=== PATIENT | male | born 1950 | race Caucasian/White ===

== ENCOUNTER 2017-11-30 01:21 | Emergency (ER) | payer OTHER ==
[2017-11-30 01:27] VITALS: BMI 21.2
--- NOTE | 2017-11-30 01:56 | PDOC ---
History of Present Illness - General Chief Complaint: Injury Stated Complaint: PAIN Time Seen by Provider: 11/30/17 01:36 History Source: Patient Exam Limitations: No Limitations - History of Present Illness Initial Comments: 11/30/17 01:48 Patient is a 67M with history of COPD and HTN here today complaining of pain in his right shoulder and right ribs that started after he fell this afternoon. He states that he was standing on the edge of a dumpster stacking boxes when he put his arm out against the adjacent building when he slipped and fell to the ground, landing mostly on his shoulder. He denies LOC, headache, neck pain. He denies shortness of breath. He endorses pain along his right ribs that increases with breathing. Patient was alert and ambulatory after falling. Patient states that he's short of breath, but at baseline. On home o2. Past History - Past Medical History Allergies/Adverse Reactions: Allergies Allergy/AdvReac Type Severity Reaction Status Date / Time No Known Allergies Allergy Verified 11/30/17 02:06 Home Medications: Ambulatory Orders Unobtainable 11/30/17 COPD: Yes HTN: Yes (no meds in some time "I ran out") - Suicide/Smoking/Psychosocial Hx Smoking History: Current every day smoker Have you smoked in the past 12 months: Yes Information on smoking cessation initiated: No Review of Systems - Review of Systems Comments:: 11/30/17 01:51 GENERAL/CONSTITUTIONAL: No fever or chills. No weakness. HEAD, EYES, EARS, NOSE AND THROAT: No change in vision. No sore throat. CARDIOVASCULAR: No chest pain +shortness of breath RESPIRATORY: No cough, wheezing, or hemoptysis. GASTROINTESTINAL: No nausea, vomiting, diarrhea or constipation. GENITOURINARY: No dysuria, frequency, or change in urination. MUSCULOSKELETAL: +right shoulder pain. No neck or back pain. SKIN: No rash NEUROLOGIC: No headache, vertigo, loss of consciousness, or change in strength/ sensation. ENDOCRINE: No increased thirst. No abnormal weight change HEMATOLOGIC/LYMPHATIC: No anemia, easy bleeding, or history of blood clots. ALLERGIC/IMMUNOLOGIC: No hives or skin allergy. *Physical Exam - Vital Signs Last Vital Signs Temp Pulse Resp BP Pulse Ox 92 H 26 H 179/104 88 L 11/30/17 01:26 11/30/17 01:26 11/30/17 01:26 11/30/17 01:26 - Physical Exam Comments: 11/30/17 01:52 GENERAL: Awake, alert, and fully oriented, in no acute distress. Sitting upright in bed. R ARM: Good offset machine operator strength, nontender snuffbox, no pain with axial thumb loading. No forearm tenderness. No tenderness in distal humerus. No collar bone tenderness. Tender along humeral head. Humeral head appears inferiorly displaced. Pain with ROM CHEST: No bruising, tender along lateral ribs HEAD: No signs of trauma, normocephalic, atraumatic EYES: PERRLA, EOMI, sclera anicteric, conjunctiva clear ENT: Auricles normal inspection, hearing grossly normal, nares patent, oropharynx clear without exudates. Moist mucosa NECK: Normal ROM, supple, no lymphadenopathy, JVD, or masses, no midline tenderness LUNGS: No distress, speaks full sentences, clear to auscultation bilaterally HEART: Regular rate and rhythm, normal S1 and S2, no murmurs, rubs or gallops, peripheral pulses normal and equal bilaterally. ABDOMEN: Soft, nontender, normoactive bowel sounds. No guarding, no rebound. No masses. No bruising BACK: No bruising, no midline tenderness. EXTREMITIES: Normal inspection, Normal range of motion, no edema. No clubbing or cyanosis. NEUROLOGICAL: Cranial nerves II through XII grossly intact. Normal speech, normal gait, no focal sensorimotor deficits SKIN: Warm, Dry, normal turgor, no rashes or lesions noted. Procedures - Chest Tube Right Mid Axillary Line 3rd ICS Indication: Pneumothorax (pigtail placed) Anesthesia: 1% Lidocaine Volume(ml): 5 Sterile Draping: Yes Sterile Technique: Yes Hazel of Air [place]: Yes Vaseline Gauze Dressing: Yes Suction: Yes Tube Sutured to Skin: Yes Complications: No Post Procedure CXR: Yes (Reinflated lung) ED Treatment Course - LABORATORY CBC & Chemistry Diagram: 11/30/17 02:22 11/30/17 02:22 - RADIOLOGY Radiology Studies Ordered: Category Date Time Status CHEST PA & LAT [RAD] Stat Radiology 11/30/17 01:45 Ordered RIBS RIGHT SIDE [RAD] Stat Radiology 11/30/17 01:45 Ordered SHOULDER-RIGHT [RAD] Stat Radiology 11/30/17 01:45 Ordered Medical Decision Making - Medical Decision Making 11/30/17 01:56 Patient is 67M with history of COPD and HTN here today complaining of shoulder and right rib pain after a fall. Patient has home O2 requirement, states that his shortness of breath is at baseline. Mechanical fall, not syncope. No blood thinners. Shoulder appears dislocated. Tender ribs. Will treat with percocet, x- ray shoulder and ribs, head ct. Neck cleared with NEXUS. 11/30/17 02:33 Shoulder x-ray shows no fracture or dislocation. Does show right sided pneumothorax. CBC, CMP, Trop, PT/INR drawn. Patient started on non-rebreather. Will sedate and place pigtail. 11/30/17 03:39 Pigtail placed without complication. Repeat CXR shows appropriate placement with re-inflation of lung. Labs pending. 11/30/17 04:[address] negative. 11/30/17 04:56 Atelectasis/PNA in RLL on CT. Fractures in anterior 3,4,5, possibly 6th ribs and 5,6,7 posterior ribs. Covered with azithromycin and ceftriaxone. 11/30/17 05:16 Transferred to [facility] for flail chest. *DC/Admit/Observation/Transfer Diagnosis at time of Disposition: Flail chest - Discharge Dispostion Disposition: TRANSFER ACUTE CARE/OTHER HOSP Condition at time of disposition: Stable Decision to Admit order: No - Referrals - Patient Instructions - Post Discharge Activity - Transfer to Acute Care Facility Receiving Facility: [facility]. Accepting Physician:: Tyrel
--- NOTE | 2017-11-30 02:04 | PDOC ---
Attending Attestation - HPI HPI: 11/30/17 03:52 Patient is a 67 year old male with a significant past medical history of COPD, HTN, who presents to the ED with complaints of right shoulder pain, s/p fall that occured this afternoon. Patient reports standing on the side of a dumpster helping a friend stack boxes when he attempted to put him on a nearby wall when he slipped causing him to fall on the floor, hitting right sided on the floor causing immediate pain. He reports experiencing associated pain along his right sided ribs that he states is increased with deep inspiration, prompting him to come into the ED for further evaluation. Denies chest pain, Sob. Denies nausea,vomiting. Denies contact with sick individuals, out of state travelling. Denies head trauma. Denies loss of consciousness. Denies dysuria, hematuria. Denies any other symptoms. Allergies: None Social history: No smoking. No alcohol. No illicit drugs. Surgical history: None PMD: None <Gregg Peterson - Last Filed: 11/30/17 03:51> - Resident Resident Name: William Rowan - ED Attending Attestation I have performed the following: I have examined & evaluated the patient, The case was reviewed & discussed with the resident, I agree w/resident's findings & plan, Exceptions are as noted - Physicial Exam PE: GENERAL: Awake, alert, and fully oriented. +Tachypnea. Cachectic. HEAD: No signs of trauma EYES: PERRLA, EOMI, sclera anicteric, conjunctiva clear ENT: Auricles normal inspection, hearing grossly normal, nares patent, oropharynx clear without exudates. Moist mucosa NECK: Normal ROM, supple, no lymphadenopathy, JVD, or masses LUNGS: Distant breath sounds B/L, more decreased on R side. +Scattered wheezes on L. HEART: Regular rate and rhythm, normal S1 and S2, no murmurs, rubs or gallops ABDOMEN: Soft, nontender, normoactive bowel sounds. No guarding, no rebound. No masses EXTREMITIES: Normal range of motion, no edema. No clubbing or cyanosis. No cords, erythema, or tenderness NEUROLOGICAL: Cranial nerves II through XII grossly intact. Normal speech. Motor and sensation intact. SKIN: Warm, Dry, normal turgor, no rashes or lesions noted. - Medical Decision Making 11/30/17 02:35 Pt found to have ptx on R side. Will place pigtail and admit. 11/30/17 04:59 Pt with multiple rib fx, including 2 fractures to the 5th and 6th ribs. Concern that this is a flail segment. Will discuss with [facility] regarding transfer. <Marcela Rodriguez - Last Filed: 11/30/17 06:00>
[2017-11-30] MEDS: ALBUTEROL SO4 2.5/IPRATROPIUM 0.5 INH SOL 3 ML VIAL.NEB. NEB ONE ×2 (02:22→02:33)
[2017-11-30] MEDS ORDERED: KETAMINE HCL 200 MG/20 ML VIAL IVPUSH ONE (02:41)
[2017-11-30] MEDS ORDERED: ALBUTEROL SO4 2.5/IPRATROPIUM 0.5 INH SOL 3 ML VIAL.NEB. NEB ONE (02:42)
[2017-11-30] MEDS ORDERED: KETAMINE HCL 500 MG/10 ML VIAL ONE (02:44)
[2017-11-30 02:54] LABS: BASO % 0.3 % (0-2.0); EOS % 0.2 % (0-4.5); HEMOGLOBIN 14.4 GM/dL (11.7-16.9); LYMPH % 3.4 % (8-40); MCH 30.3 pg (25.7-33.7); MCHC 33.6 g/dl (32.0-35.9); MEAN CELL VOLUME 90.1 fl (80-96); MEAN PLT VOLUME 7.3 fl (7.5-11.1); MONO % 3.2 % (3.8-10.2); NEUT % 92.9 % (42.8-82.8); PLATELET COUNT 286 K/MM3 (134-434); RBC 4.77 M/mm3 (4.00-5.60); RDW 13.7 % (11.9-15.9); WHITE BLOOD COUNT 20.3 K/mm3 (4.0-10.0)
[2017-11-30 03:14] LABS: INR 0.97 (0.83-1.09)
[2017-11-30 03:24] LABS: ALBUMIN 4.2 g/dl (3.4-5.0); ANION GAP 9 MMOL/L (8-16); BILIRUBIN,TOTAL 0.3 mg/dL (0.2-1.0); BLOOD UREA NITROGEN 14 mg/dL (7-18); CALCIUM 8.5 mg/dL (8.5-10.1); CHLORIDE 102 mmol/L (98-107); CO2 26 mmol/L (21-32); CREATININE 0.9 mg/dL (0.7-1.3); GLUCOSE,RANDOM 137 mg/dL (74-106); MAGNESIUM 2.2 mg/dL (1.8-2.4); SGOT/AST 26 U/L (15-37); SGPT/ALT 14 U/L (12-78); SODIUM 137 mmol/L (136-145); TOT PROT 7.5 g/dl (6.4-8.2)
[2017-11-30] MEDS ORDERED: LORazepam 2 MG/ML SDV VIAL ONE (03:25)
[2017-11-30 03:27] LABS: ALK PHOS 98 U/L (45-117)
[2017-11-30] MEDS ORDERED: KETAMINE HCL 500 MG/10 ML VIAL IV ONE (03:35)
[2017-11-30] MEDS ORDERED: AZITHROMYCIN IVPB 500 MG in DEXTROSE 5%-WATER - 250 ML IVPB ONE (04:37)
[2017-11-30] MEDS ORDERED: cefTAZidime PENTAHYDRATE 1 GM/10 ML SYRINGE (RESTRICTED TO ID) IVPUSH ONE (04:37)
[2017-11-30] MEDS ORDERED: AZITHROMYCIN IVPB 250 ML IVPB ONE (04:53)
[2017-11-30] MEDS ORDERED: CEFTAZIDIME PENTAHYDRATE 1 GM in DEXTROSE 5%-WATER - 50 ML IVPB ONE (05:00)
[2017-11-30 05:59] LABS: ACANTHOCYTES 0; ANISOCYTOSIS 0; HELMET CELLS 0; HOWELL-JOLLY BODIES 0; MACROCYTOSIS 0; OVALOCYTE 0; PLATELET ESTIMATE NORMAL; ROULEAU 0; SICKELED CELLS 0; TARGET CELLS 0; TEAR DROP CELLS 0; TOXIC GRANULATION 0
[2017-11-30 06:05] VITALS: BP 145/82; PULSE 92; TEMP 97.8
--- NOTE | 2017-11-30 12:00 | EKG ---
Test Reason : Blood Pressure : / mmHG Vent. Rate : 077 BPM Atrial Rate : 077 BPM P-R Int : 134 ms QRS Dur : 082 ms QT Int : 388 ms P-R-T Axes : 087 063 059 degrees QTc Int : 439 ms NORMAL SINUS RHYTHM SEPTAL INFARCT , AGE UNDETERMINED ABNORMAL ECG NO PREVIOUS ECGS AVAILABLE Confirmed by SHARYN CHASE MD ([id number]) on 11/30/2017 11:59:47 AM Referred By: Confirmed By:SHARYN CHASE MD
== END 2017-11-30 06:11 | disposition short-term general hospital (02) ==
LOC: JER 01:21
PROC: 3E0F7GC Introduction of Other Therapeutic Substance into Respiratory Tract, Via Natural or Artificial Opening (ICD-10-PCS; principal; 2017-11-30)
PROC: 3E03329 Introduction of Other Anti-infective into Peripheral Vein, Percutaneous Approach (ICD-10-PCS; 2017-11-30)
PROC: 3E033GC Introduction of Other Therapeutic Substance into Peripheral Vein, Percutaneous Approach (ICD-10-PCS; 2017-11-30)
PROC: 0W9900Z Drainage of Right Pleural Cavity with Drainage Device, Open Approach (ICD-10-PCS; 2017-11-30)
DX: S22.5XXA Flail chest, initial encounter for closed fracture (principal); W17.89XA Other fall from one level to another, initial encounter; Y93.89 Activity, other specified; Y92.89 Other specified places as the place of occurrence of the external cause; Y99.9 Unspecified external cause status; J44.9 Chronic obstructive pulmonary disease, unspecified; I10 Essential (primary) hypertension; F17.210 Nicotine dependence, cigarettes, uncomplicated
CPT/HCPCS: 32551; 36415; 70450-TC; 71045-TC-FY; 71046-TC-FY; 71101-TC-RT-FY; 71250-TC; 73030-TC-RT-FY; 80053; 82550; 82553; 83735; 84484; 85025; 85610; 87040; 93005; 93010; 94640; 96365; 96367; 96375; 99285-25; J7620